=== PATIENT | male | born 1960 | race Caucasian/White ===

== ENCOUNTER 2018-02-03 15:08 | Observation (INO) | payer OTHER ==
[~2018-02-03] VITALS: Ht 175.3 cm; Wt 74.1 kg
[~2018-02-03 15:08] MED LIST: AMLODIPINE BESY10 MG PO; BENICAR 5 MG5 M1 PO; BENICAR HCT 401 EAC1 PO; CRESTOR10 MG PO; DOXYCYCLINE 10100 MG PO; GLUCOPHAGE1000 MG PO; HUMALOG100 UNIT/1; HUMIRA40 MG/0.1 SQ; HYDROXYZINE HCL25 M1 PO; KEFLEX500 MG PO; LOPRESSOR100 MG PO; LORTAB 10 MG-3473 ML PO; NEPHRO-VITE RX1 TA1 PO; NORCO 5-325 TA1 EACH PO; PRILOSEC 20 MG20 MG PO; SINGULAIR 10 MG10 M1 PO; SYMBICORT80 MCG/4.1 INH; TREXALL10 MG PO; TRICOR145 MG PO; VENTOLIN HFA 1818 GM INH; VICODIN 5-5001 EACH PO; [UNRECOGNIZED DRUG - OTHER]; magic mouthwash PO
[2018-02-03 15:11] VITALS: BP 154/73
[2018-02-03] MEDS ORDERED: ERGOCALCIF50000 UNIT PO (15:38)
[2018-02-03] MEDS ORDERED: CIALIS5 MG PO (15:39)
[2018-02-03] MEDS ORDERED: TRAMADOL 50 MG50 MG PO (15:39)
[2018-02-03 15:47] LABS: URINE BILIRUBIN NEGATIVE (Negative); URINE BLOOD NEGATIVE (Negative); URINE CLARITY CLEAR; URINE COLOR YELLOW; URINE GLUCOSE-RANDOM TRACE (Negative); URINE KETONES NEGATIVE (Negative); URINE LEUKOCYTES-REFLEX NEGATIVE (Negative); URINE NITRITE-REFLEX NEGATIVE (Negative); URINE PROTEIN NEGATIVE (Negative); URINE SPECIFIC GRAVITY 1.015 (1.005-1.030); URINE UROBILINOGEN 0.2 E.U./dl (0.2-1.0)
[2018-02-03 15:48] LABS: ABSOLUTE BASOPHILS 0.1 thou/uL (0.0-0.2); ABSOLUTE EOSINOPHILS 0.2 thou/uL (0.0-0.7); ABSOLUTE LYMPHOCYTES 2.7 thou/uL (0.8-5.3); ABSOLUTE MONOCYTES 1.8 thou/uL (0.0-1.2); BASOPHILS 0.4 %; EOSINOPHILS 1.5 %; HEMATOCRIT 41.1 % (42.0-52.0); HEMOGLOBIN 13.6 gm/dL (14.0-18.0); LYMPHOCYTES 19.4 %; MCH 30.6 pg (26.0-34.0); MCV 92.6 fL (80.0-100.0); MONOCYTES 13.3 %; MPV 7.7 fl. (7.2-11.1); NUCLEATED RBCS 0 /100WBC; PLATELET COUNT* 261 thou/uL (150-400); POLYS 65.4 %; RBC 4.44 mil/uL (4.50-6.00); RDW-CV 12.7 % (10.5-14.5); WBC 13.7 thou/uL (4.0-11.0)
[2018-02-03 15:52] LABS: CALCIUM 9.3 mg/dL (8.5-10.1); POTASSIUM 3.8 mmol/L (3.5-5.1)
--- NOTE | 2018-02-03 15:55 | NUR ---
PT ASKED TO SHUT OFF INSULIN PUMP HE IS NPO AND BG=64. PT DENIES DIZZINESS/ NAUSEA OR CONFUSION, WILL RE-CHECK BG AT 1630.
[2018-02-03 15:59] LABS: ALBUMIN 3.5 g/dL (3.4-5.0); TOTAL BILIRUBIN 0.5 mg/dL (<0.1-1.0); TOTAL PROTEIN 8.5 g/dL (6.4-8.2)
[2018-02-03] MEDS ORDERED: LANTUS SUBQ (16:24)
[2018-02-03] MEDS ORDERED: INVOKANA100 MG PO (16:25)
[2018-02-03] MEDS ORDERED: AMLODIPINE BESY10 MG PO (16:25)
[2018-02-03] MEDS ORDERED: LOSARTAN POTASS50 MG PO (16:26)
[2018-02-03] MEDS ORDERED: LEXAPRO 10 MG T10 M2 PO (16:26)
[2018-02-03] MEDS ORDERED: NOVOLOG100 UNIT/1 SUBQ (16:27)
[2018-02-03] MEDS ORDERED: AMITRIPTYLINE H25 M2 PO (16:27)
[2018-02-03] MEDS ORDERED: ASPIRIN325 PO (16:27)
[2018-02-03] MEDS ORDERED: LIALDA1.2 GM PO (16:28)
[2018-02-03] MEDS ORDERED: VENTOLIN HFA 1818 GM INH (16:28)
[2018-02-03 20:53] VITALS: BP 149/71
--- NOTE | 2018-02-03 23:30 | NUR ---
2100 ALERT AND ORIENTED X 4 MALE PATIENT TO BED 105 FROM ER BY CART IN STABLE CONDITION. ADMISSION ROUTINES IN PROGRESS. VITAL SIGNS STABLE. CONTINUE TO MONITOR.
[2018-02-04 04:56] LABS: ABSOLUTE BASOPHILS 0.1 thou/uL (0.0-0.2); ABSOLUTE EOSINOPHILS 0.1 thou/uL (0.0-0.7); ABSOLUTE LYMPHOCYTES 1.8 thou/uL (0.8-5.3); ABSOLUTE MONOCYTES 1.9 thou/uL (0.0-1.2); BASOPHILS 0.6 %; EOSINOPHILS 0.5 %; HEMOGLOBIN 12.5 gm/dL (14.0-18.0); LYMPHOCYTES 12.9 %; MCV 93.9 fL (80.0-100.0); MONOCYTES 13.8 %; NUCLEATED RBCS 0 /100WBC; PLATELET COUNT* 221 thou/uL (150-400); POLYS 72.2 %; RBC 4.04 mil/uL (4.50-6.00); RDW-CV 12.8 % (10.5-14.5); WBC 13.9 thou/uL (4.0-11.0)
[2018-02-04 05:08] LABS: MAGNESIUM 1.5 mg/dL (1.8-2.4); PHOSPHORUS* 2.9 mg/dL (2.5-4.9)
--- NOTE | 2018-02-04 05:14 | NUR ---
PATIENT HAS REMAINED ALERT AND ORIENTED X 4 THROUGHOUT THE SHIFT AND RESTING QUIETLY ON HOURLY ROUNDS. STANDING AT BEDSIDE TO VOID PER URINAL. IVF'S AND ANTIBIOTICS PER ORDERS. MEDICATED X 1 FOR ABDOMINAL PAIN TO GOOD EFFECT. NPO STATUS MAINTAINED WITH EXCEPTION OF MED WITH SIPS. VITAL SIGNS STABLE. BLOOD SUGAR AT MIDNIGHT 242 WITH SLIDING SCALE MOD DOSE PROVIDED. NEXT CHECK 0600. CONTINUE TO MONITOR.
[2018-02-04 05:16] LABS: ALBUMIN 2.8 g/dL (3.4-5.0); CALCIUM 8.1 mg/dL (8.5-10.1); CREATININE 1.1 mg/dL (0.6-1.3); POTASSIUM 4.6 mmol/L (3.5-5.1); TOTAL BILIRUBIN 0.6 mg/dL (<0.1-1.0); TOTAL PROTEIN 7.4 g/dL (6.4-8.2)
[2018-02-04 06:00] VITALS: BP 144/65
[2018-02-04] MEDS ORDERED: AUGMENTIN 875-1 EACH PO (09:01)
[2018-02-04 09:23] VITALS: BP 135/68
[2018-02-04 10:34] VITALS: BP 135/68
[2018-02-04 15:13] VITALS: BP 135/68
--- NOTE | 2018-02-04 15:15 | NUR ---
PATIENT HAS BEEN ALERT BUT DROWSY TODAY, FROM PAIN MEDICAIONS. PATIETN ENCOURAGED TO AMBULATE IN HALLS, WALKED PATIENT AND OXYGEN LEVELS CAME UP TO THE MID 90'S AND STAYED WHILE PATIEMT WAS SITTING UP. PATIENT BEING DISCHARGED TO HOME, DISCHARGE INSTRUCTIONS AND PRESCRIPTIONS GIVEN TO PATIENT. PATIENT LEFT BELONGINGS IN ROOM, CAUGHT SISTER IN LAW IN THE PARKING LOT AND GAVE PHONE, DISCHARGE PAPERS AND PRESCRIPTIONS TO HER. PATIENT LEFT VIA WHEELCHAIR TO HOME.
== END 2018-02-04 15:20 | disposition home or self-care (01) ==
LOC: M.ERS 15:08 → M.ORTHSURG 20:01 → M.TBA-ER 20:01 → M.ORTHSURG 20:58
PROVIDERS: Physician Assistant Surgical; Surgery; ADMIT Internal Medicine
DX: K55.069 Acute infarction of intestine, part and extent unspecified (principal); E11.9 Type 2 diabetes mellitus without complications; I10 Essential (primary) hypertension; G25.81 Restless legs syndrome; J44.9 Chronic obstructive pulmonary disease, unspecified; E78.5 Hyperlipidemia, unspecified; I65.29 Occlusion and stenosis of unspecified carotid artery; D72.829 Elevated white blood cell count, unspecified; E16.2 Hypoglycemia, unspecified; Z79.4 Long term (current) use of insulin; Z86.718 Personal history of other venous thrombosis and embolism; Z98.890 Other specified postprocedural states; Z90.49 Acquired absence of other specified parts of digestive tract